=== PATIENT | female | born 1960 | race Caucasian/White ===

== ENCOUNTER 2017-05-15 09:55 | Emergency (ER) | payer BC ==
[2017-05-15 11:09] VITALS: BP 109/69
--- NOTE | 2017-05-15 11:23 | UC ---
Upper Extremity HPI - HPI Summary HPI Summary: 56 YEAR OLD FEMALE WITH SUTURES TO BE REMOVED no acute concerns had placed 1 week ago no infection feels well no concerns - History of Current Complaint Chief Complaint: UCWounds Stated Complaint: STITCH REMOVAL Time Seen by Provider: 05/15/17 10:58 Hx Obtained From: Patient Onset/Duration: Sudden Onset - Allergies/Home Medications Allergies/Adverse Reactions: Allergies Allergy/AdvReac Type Severity Reaction Status Date / Time Erythromycin Allergy Severe HEADACHE, Verified 05/15/17 11:08 NAUSEA PMH/Surg Hx/FS Hx/Imm Hx Previously Healthy: Yes - Surgical History Surgical History: None - Family History Known Family History: Positive: None - Social History Occupation: Employed Full-time Alcohol Use: Occasionally Substance Use Type: None Smoking Status (MU): Never Smoked Tobacco - Immunization History Most Recent Tetanus Shot: THINKS 2011 Review of Systems Skin: Other - laceration fingers with suture All Other Systems Reviewed And Are Negative: Yes Physical Exam Triage Information Reviewed: Yes Appearance: Well-Appearing, No Pain Distress, Well-Nourished Vital Signs: Initial Vital Signs Temp 98.7 F 05/15/17 11:04 Pulse 74 05/15/17 11:04 Resp 18 05/15/17 11:04 BP 109/69 05/15/17 11:04 Pulse Ox 100 05/15/17 11:04 Vital Signs Reviewed: Yes Respiratory Exam: Normal Cardiovascular Exam: Normal Skin: Positive: Other - 2 sutures removed from 2 fingers well approximated tolerated procedure well Upper Extremity Course/Dx - Differential Dx/Diagnosis Provider Diagnoses: suture removal Discharge - Discharge Plan Condition: Good Disposition: HOME Patient Education Materials: Stitches Removal (ED) Referrals: Ayaan Pelaez MD [Primary Care Provider] - If Needed
== END 2017-05-15 11:45 | disposition home or self-care (01) ==
LOC: UCEAST 09:55
DX: S61.218D Laceration without foreign body of other finger without damage to nail, subsequent encounter (principal); X58.XXXD Exposure to other specified factors, subsequent encounter; Y92.9 Unspecified place or not applicable